=== PATIENT | male | born 1995 | race African-American/Black ===

== ENCOUNTER 2016-12-03 17:31 | Emergency (ER) | payer SELFPAY ==
[~2016-12-03] VITALS: Ht 172.7 cm; Wt 75.0 kg
[2016-12-03] MEDS ORDERED: ONDANSETRON 4MG ODT PO STA (18:37)
[2016-12-03] MEDS ORDERED: MAGNESIUM/ALUMINUM HYDROXIDE/SIMETHICONE 30ML UDC PO STA (18:37)
[2016-12-03] MEDS ORDERED: VISCOUS LIDOCAINE 2% 15 ML UDC PO STA (18:37)
[2016-12-03] MEDS ORDERED: FAMOTIDINE 20MG TABLET PO ONE (18:45)
[2016-12-03 18:58] LABS: CLARITY URINE CLEAR (CLEAR); COLOR URINE YELLOW (YELLOW); GLUCOSE URINE NEGATIVE (NEGATIVE); KETONES URINE NEGATIVE (NEGATIVE); LEUKOCYTE ESTERASE URINE NEGATIVE (NEGATIVE); NITRITE URINE NEGATIVE (NEGATIVE); OCCULT BLOOD URINE NEGATIVE (NEGATIVE); PH URINE 7.5 (4.5-8.0); PROTEIN URINE NEGATIVE (NEGATIVE); SPECIFIC GRAVITY URINE 1.011 (1.005-1.030)
[2016-12-03 19:10] LABS: *AMPHETAMINES SCREEN URINE NEGATIVE (NEGATIVE); *BARBITURATES SCREEN URINE NEGATIVE (NEGATIVE); *BENZODIAZEPINES SCREEN URINE NEGATIVE (NEGATIVE); *COCAINE SCREEN URINE NEGATIVE (NEGATIVE); CANNABINOID URINE SCREEN PRESUMTIVE POSITIVE (NEGATIVE); ECSTASY MDMA SCREEN URINE NEGATIVE (NEGATIVE); METHADONE URINE SCREEN NEGATIVE (NEGATIVE); OPIATES URINE SCREEN NEGATIVE (NEGATIVE); PHENCYCLIDINE URINE SCREEN NEGATIVE (NEGATIVE)
[2016-12-03 19:13] LABS: BASOPHILS % 0.4 % (0.0-2.0); EOSINOPHILS % 0.9 % (0.0-5.0); HEMATOCRIT. 46.4 % (42.0-52.0); HEMOGLOBIN. 15.4 g/dL (14.0-18.0); MEAN CORPUSCULAR HEMOGLOBIN 27.3 pg (28.0-32.0); MEAN CORPUSCULAR HGB CONC 33.1 g/dL (31.0-37.0); MEAN CORPUSCULAR VOLUME 82.4 fL (80.0-94.0); MEAN PLATELET VOLUME 8.9 fl (7.4-10.4); NEUTROPHILS % 74.7 % (40.0-76.0); PLATELET 221 x1000/uL (130-400); RED BLOOD CELL COUNT 5.64 mill/uL (4.7-6.1); RED CELL DISTRIBUTION WIDTH 13.8 % (11.6-14.6); WHITE BLOOD COUNT 6.9 x1000/uL (4.5-11.0)
[2016-12-03 19:17] LABS: CHLORIDE 105 mEq/L (98-107); INDEX HEMOLYSI 1 (1-3); INDEX ICTERIC 1 (1-4); INDEX LIPEMIC 1 (1-3)
[2016-12-03 19:20] VITALS: BP 148/101
[2016-12-03 19:20] LABS: INR 1.1; PARTIAL THROMBOPLASTIN TIME 27.8 sec (24.0-34.0)
[2016-12-03 19:26] LABS: ALANINE AMINOTRANSFERASE 19 IU/L (13-61); ANION GAP 13; CALCIUM 8.8 mg/dL (8.5-10.1); CARBON DIOXIDE 28 mEq/L (21-32); ETHANOL BLOOD < 10 mg/dL; LIPASE 115 IU/L (73-393); UREA NITROGEN BLOOD 8 mg/dL (7-21); eGFR > 60 mL/min (>60)
== END 2016-12-03 20:43 | disposition home or self-care (01) ==
LOC: ER 17:48
DX: K21.9 Gastro-esophageal reflux disease without esophagitis (principal); F12.90 Cannabis use, unspecified, uncomplicated; Z82.49 Family history of ischemic heart disease and other diseases of the circulatory system; Z83.3 Family history of diabetes mellitus
CPT/HCPCS: 36415; 71010; 80053; 80305; 81003; 83690; 85025; 85610; 85730; 93005; 99285; G0482; Q0162; Z7610

== ENCOUNTER 2016-12-06 08:06 | Emergency (ER) | payer MEDICAID ==
[~2016-12-06] VITALS: Ht 182.9 cm; Wt 123.0 kg
[2016-12-06] MEDS ORDERED: METO-293 PO (08:22)
[2016-12-06 11:50] VITALS: BP 138/74
== END 2016-12-06 11:50 | disposition home or self-care (01) ==
LOC: ER 08:29
DX: K21.9 Gastro-esophageal reflux disease without esophagitis (principal); F12.10 Cannabis abuse, uncomplicated; Z88.8 Allergy status to other drugs, medicaments and biological substances
CPT/HCPCS: 99283

== ENCOUNTER 2016-12-06 22:27 | Emergency (ER) | payer MEDICAID ==
[~2016-12-06] VITALS: Ht 177.8 cm; Wt 108.9 kg
[~2016-12-06 22:27] MED LIST: METO-293 PO
[2016-12-07 02:35] VITALS: BP 142/114
[2016-12-07 04:50] LABS: *AMPHETAMINES SCREEN URINE NEGATIVE (NEGATIVE); *BARBITURATES SCREEN URINE NEGATIVE (NEGATIVE); *BENZODIAZEPINES SCREEN URINE NEGATIVE (NEGATIVE); *COCAINE SCREEN URINE NEGATIVE (NEGATIVE); CANNABINOID URINE SCREEN PRESUMTIVE POSITIVE (NEGATIVE); ECSTASY MDMA SCREEN URINE NEGATIVE (NEGATIVE); METHADONE URINE SCREEN NEGATIVE (NEGATIVE); OPIATES URINE SCREEN NEGATIVE (NEGATIVE); PHENCYCLIDINE URINE SCREEN NEGATIVE (NEGATIVE)
== END 2016-12-07 04:22 | disposition home or self-care (01) ==
LOC: ER 22:57
DX: K21.9 Gastro-esophageal reflux disease without esophagitis (principal); G47.00 Insomnia, unspecified; I10 Essential (primary) hypertension; Z79.899 Other long term (current) drug therapy; Z83.3 Family history of diabetes mellitus; Z82.49 Family history of ischemic heart disease and other diseases of the circulatory system
CPT/HCPCS: 80305; 99284

== ENCOUNTER 2016-12-15 21:56 | Emergency (ER) | payer MEDICAID ==
[~2016-12-15] VITALS: Ht 175.3 cm; Wt 108.0 kg
[2016-12-15] MEDS ORDERED: FAMOTIDINE 20MG/2ML VIAL IV STA (22:36)
[2016-12-15] MEDS ORDERED: METOCLOPRAMIDE HCL 10MG/2ML VIAL IV STA (22:36)
[2016-12-15 23:05] LABS: BASOPHILS % 0.7 % (0.0-2.0); EOSINOPHILS % 1.1 % (0.0-5.0); HEMATOCRIT. 45.2 % (42.0-52.0); HEMOGLOBIN. 14.9 g/dL (14.0-18.0); LYMPHOCYTES % 24.5 % (20.0-50.0); MEAN CORPUSCULAR HEMOGLOBIN 27.4 pg (28.0-32.0); MEAN CORPUSCULAR HGB CONC 32.9 g/dL (31.0-37.0); MEAN CORPUSCULAR VOLUME 83.1 fL (80.0-94.0); MEAN PLATELET VOLUME 8.6 fl (7.4-10.4); MONOCYTES % 6.2 % (2.0-8.0); NEUTROPHILS % 67.5 % (40.0-76.0); PLATELET 215 x1000/uL (130-400); RED BLOOD CELL COUNT 5.44 mill/uL (4.7-6.1)
[2016-12-15 23:14] LABS: ALBUMIN 3.8 g/dL (3.4-5.0); ANION GAP 12; CALCIUM 8.9 mg/dL (8.5-10.1); CARBON DIOXIDE 27 mEq/L (21-32); CHLORIDE 105 mEq/L (98-107); INDEX HEMOLYSI 1 (1-3); INDEX ICTERIC 1 (1-4); INDEX LIPEMIC 1 (1-3); INR 1.1; PROTHROMBIN TIME 11.7 sec
[2016-12-15 23:19] LABS: ETHANOL BLOOD < 10 mg/dL; LIPASE 139 IU/L (73-393); UREA NITROGEN BLOOD 16 mg/dL (7-21); eGFR > 60 mL/min (>60)
[2016-12-15 23:28] LABS: ALANINE AMINOTRANSFERASE 23 IU/L (13-61)
[2016-12-16 00:13] LABS: CLARITY URINE CLEAR (CLEAR); COLOR URINE YELLOW (YELLOW); GLUCOSE URINE NEGATIVE (NEGATIVE); KETONES URINE NEGATIVE (NEGATIVE); LEUKOCYTE ESTERASE URINE NEGATIVE (NEGATIVE); NITRITE URINE NEGATIVE (NEGATIVE); OCCULT BLOOD URINE NEGATIVE (NEGATIVE); PROTEIN URINE NEGATIVE (NEGATIVE)
[2016-12-16 00:47] LABS: *AMPHETAMINES SCREEN URINE NEGATIVE (NEGATIVE); *BARBITURATES SCREEN URINE NEGATIVE (NEGATIVE); *BENZODIAZEPINES SCREEN URINE NEGATIVE (NEGATIVE); *COCAINE SCREEN URINE NEGATIVE (NEGATIVE); CANNABINOID URINE SCREEN PRESUMTIVE POSITIVE (NEGATIVE); ECSTASY MDMA SCREEN URINE NEGATIVE (NEGATIVE); METHADONE URINE SCREEN NEGATIVE (NEGATIVE); OPIATES URINE SCREEN NEGATIVE (NEGATIVE); PHENCYCLIDINE URINE SCREEN NEGATIVE (NEGATIVE)
[2016-12-16 01:26] VITALS: BP 132/68
== END 2016-12-16 01:30 | disposition home or self-care (01) ==
LOC: ER 22:39
DX: K21.9 Gastro-esophageal reflux disease without esophagitis (principal); R11.0 Nausea; R19.7 Diarrhea, unspecified
CPT/HCPCS: 36415; 71010; 80053; 80305; 81003; 83690; 85025; 85610; 96374; 96375; 99285; G0482; J2765; J3490; Z7610

== ENCOUNTER 2016-12-25 20:23 | Emergency (ER) | payer MEDICAID ==
[~2016-12-25] VITALS: Ht 177.8 cm; Wt 113.0 kg
[2016-12-25 20:40] VITALS: BP 134/90
== END 2016-12-25 22:30 | disposition left against medical advice (07) ==
LOC: ER 20:27
DX: Z53.21 Procedure and treatment not carried out due to patient leaving prior to being seen by health care provider (principal)

== ENCOUNTER 2017-04-13 12:18 | Emergency (ER) | payer MEDICAID ==
[~2017-04-13] VITALS: Ht 182.9 cm; Wt 114.0 kg
[2017-04-13 15:15] VITALS: BP 126/73
[2017-04-13] MEDS ORDERED: IBUPROFEN 600MG TABLET PO ONE (15:15)
== END 2017-04-13 15:30 | disposition home or self-care (01) ==
LOC: ER 13:06
DX: J06.9 Acute upper respiratory infection, unspecified (principal); M62.838 Other muscle spasm; K21.9 Gastro-esophageal reflux disease without esophagitis
CPT/HCPCS: 99283

== ENCOUNTER 2018-12-17 15:14 | Emergency (ER) | payer MEDICAID ==
[~2018-12-17] VITALS: Ht 182.9 cm; Wt 113.0 kg
[2018-12-17 15:24] VITALS: BP 170/99
[2018-12-17 16:37] LABS: CLARITY URINE CLEAR (CLEAR); COLOR URINE YELLOW (YELLOW); KETONES URINE TRACE (NEGATIVE); LEUKOCYTE ESTERASE URINE NEGATIVE (NEGATIVE); NITRITE URINE NEGATIVE (NEGATIVE); OCCULT BLOOD URINE NEGATIVE (NEGATIVE); PH URINE 5.5 (4.5-8.0); PROTEIN URINE NEGATIVE (NEGATIVE); SPECIFIC GRAVITY URINE 1.009 (1.005-1.030); UROBILINOGEN URINE 0.2 E.U./dL (0.2-1.0)
[2018-12-19 04:21] LABS: HIV SCREEN 4G Non Reactive (Non Reactive)
[2018-12-20 04:21] LABS: CHLAMYDIA TRACHOMATIS NAA Negative (Negative); NEISSERIA GONORRHOEAE NAA Negative (Negative)
== END 2018-12-17 16:59 | disposition home or self-care (01) ==
LOC: ER 15:55
DX: N48.89 Other specified disorders of penis (principal); K21.9 Gastro-esophageal reflux disease without esophagitis
CPT/HCPCS: 86592; 86695; 86696; 87389; 87491; 87591; 99283

== ENCOUNTER 2019-02-18 02:00 | Emergency (ER) | payer MEDICAID ==
[~2019-02-18] VITALS: Ht 182.9 cm; Wt 123.0 kg
[2019-02-18] MEDS ORDERED: DEXAMETHASONE 10 MG/ML VIAL PO ONE (03:30)
[2019-02-18 05:04] VITALS: BP 136/70
== END 2019-02-18 05:12 | disposition home or self-care (01) ==
LOC: ER 02:00
DX: J02.9 Acute pharyngitis, unspecified (principal); F41.9 Anxiety disorder, unspecified; F32.9 Major depressive disorder, single episode, unspecified; K21.9 Gastro-esophageal reflux disease without esophagitis
CPT/HCPCS: 87070; 87430; 99283; J1100

== ENCOUNTER 2019-08-21 15:07 | Emergency (ER) | payer MEDICAID ==
[~2019-08-21] VITALS: Ht 175.3 cm; Wt 90.0 kg
[2019-08-21] MEDS ORDERED: ONDANSETRON HCL 4MG/2ML INJ IV STA (17:49)
[2019-08-21] MEDS ORDERED: SODIUM CHLORIDE 0.9% 1,000 ML IV ONE (17:49)
[2019-08-21 18:28] LABS: CLARITY URINE CLOUDY (CLEAR); COLOR URINE DARK YELLOW (YELLOW); KETONES URINE 2+ (NEGATIVE); LEUKOCYTE ESTERASE URINE NEGATIVE (NEGATIVE); NITRITE URINE NEGATIVE (NEGATIVE); OCCULT BLOOD URINE NEGATIVE (NEGATIVE); PH URINE 5.5 (4.5-8.0); PROTEIN URINE 1+ (NEGATIVE)
[2019-08-21 18:29] LABS: CHLORIDE 107 mEq/L (98-107)
[2019-08-21 18:30] LABS: HEMATOCRIT. 45.7 % (42.0-52.0); HEMOGLOBIN. 14.9 g/dL (14.0-18.0); MEAN CORPUSCULAR HEMOGLOBIN 27.5 pg (28.0-32.0); MEAN CORPUSCULAR VOLUME 84.5 fL (80.0-94.0); MEAN PLATELET VOLUME 8.7 fl (7.4-10.4); PLATELET 191 x1000/uL (130-400); RED BLOOD CELL COUNT 5.41 mill/uL (4.7-6.1); RED CELL DISTRIBUTION WIDTH 14.3 % (11.6-14.6)
[2019-08-21 18:40] LABS: HCG SCREEN NEGATIVE
[2019-08-21 19:35] LABS: *BARBITURATES SCREEN URINE NEGATIVE (NEGATIVE); *BENZODIAZEPINES SCREEN URINE NEGATIVE (NEGATIVE); *COCAINE SCREEN URINE NEGATIVE (NEGATIVE)
[2019-08-21 19:36] LABS: *AMPHETAMINES SCREEN URINE NEGATIVE (NEGATIVE); CANNABINOID URINE SCREEN NEGATIVE (NEGATIVE); METHADONE URINE SCREEN NEGATIVE (NEGATIVE); OPIATES URINE SCREEN NEGATIVE (NEGATIVE); PHENCYCLIDINE URINE SCREEN NEGATIVE (NEGATIVE)
[2019-08-21 19:40] LABS: ETHANOL BLOOD < 10 mg/dL
[2019-08-21 19:46] VITALS: BP 112/40
[2019-08-21 20:26] LABS: NUCLEATED RED BLOOD CELLS 1 /100 WBC
[2019-08-21 20:27] LABS: PLATELET ESTIMATE NORMAL
== END 2019-08-21 19:49 | disposition home or self-care (01) ==
LOC: ER 15:07
DX: R11.2 Nausea with vomiting, unspecified (principal); R19.7 Diarrhea, unspecified; R00.0 Tachycardia, unspecified; K21.9 Gastro-esophageal reflux disease without esophagitis; Z87.19 Personal history of other diseases of the digestive system; Z83.3 Family history of diabetes mellitus; Z82.49 Family history of ischemic heart disease and other diseases of the circulatory system
CPT/HCPCS: 36415; 80053; 80305; 80320; 81003; 83690; 84703; 85025; 96361; 96374; 99283; J2405; J7030; Z7610; G0480